=== PATIENT | male | born 1950 | race Caucasian/White ===

== ENCOUNTER 2024-07-24 07:31 | Outpatient (CLI) | payer MEDICARE, OTHER, SELFPAY ==
--- NOTE | ~2024-07-24 | PE_ITS ---
EXAMINATION: PET_PETPSMAST_PT DATE: 07/24/2024 09:46 INDICATION: Gastric cancer TECHNIQUE: 5.773 mCi of Illucix Ga-68([id number]) was administered i.v. Low dose computed tommy graphy (CT) images were acquired from the base of the brain to the base of the brain to the proximal thighs for attenuation correction and anatomic localization. Positron emission tomography (PET) image s were acquired in the same distribution beginning 88 minutes after injection. Images including fused PET/CT images were reconstructed in axial, coronal, and sagittal planes. Automated exposure control technique was employed. The dose-length product was 1242.86mGy-cm. COMPARISON: None FINDINGS: Head/neck: Typical pattern of symmetric physiologic increased activity in the lacrimal, parotid and submandibula r glands as well as along the mucosa of the nasal and oral cavities, pharynx and hypopharynx. No path ologically enlarged cervical lymphadenopathy or suspicious foci of increased uptake in the visualized head or neck. 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 Mil d dependent atelectasis in the bilateral lower lobes. No other suspicious pulmonary nodules, pulmonar y edema, pneumonia or pleural effusion. Heart size is normal. Atherosclerotic coronary artery calcifi cation. No pericardial effusion. Thoracic aorta is normal in caliber. No pathologically enlarged or P MSA avid thoracic lymphadenopathy. Abdomen/pelvis/proximal thighs: Physiologic renal accumulation and excretion of activity in the kidneys, bladder and along portions o f ureters. Bilateral nonobstructing nephrolithiasis with largest stone measuring 6 mm a left total ca lyx of the left kidney also several small stones within the decompressed bladder. Small focus of incr eased PMSA activity at the posterior prostate near the midline which extends cephalad and posteriorly in the base of the right seminal vesicle with maximal SUV of 18.6 consistent with primary prostate c ancer. There is a single 9 x 4 mm PSMA avid left obturator lymph node along the posterolateral margin of the left common iliac vein with maximal SUV of 4.0. Normal degree and slightly heterogenous patte rn of increased uptake throughout the liver and spleen without radiologic correlate or dominant PSMA avid lesion. Small calcified gallstones within the normal-appearing gallbladder. Pancreas and bilater al adrenal glands are normal. Moderate uptake scattered throughout the bowels with typical duodenal a nd proximal jejunal predominance and without radiologic correlate, also likely physiologic. Mild sigm oid diverticulosis without adjacent inflammatory stranding to suggest diverticular colitis. Normal ap pendix. No other abnormal foci of increased uptake or pathologically enlarged lymphadenopathy in the abdomen, pelvis or proximal thighs. Musculoskeletal: Moderate cervical, thoracic and lumbar spondylosis with anterior fusion at C6-C7. Small sclerotic bon e island at the left posterior iliac spine without associated PSMA uptake. No other suspicious lytic, blastic or abnormally PSMA avid bone lesions. IMPRESSION: 1. Increased uptake at the posterior prostate extending to the base of the right seminal vesicle susp icious for primary prostate cancer with likely local invasion of the seminal vesicle. 2. Single small PSMA avid left obturator lymph node suspicious for metastatic disease. No other lesio ns suspicious for metastatic disease in the neck, chest, abdomen or pelvis. 3. 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 4. Cholelithiasis. 5. Bilateral nonobstructing nephrolithiasis as well as several bladder stones. Reviewed, dictated and finalized at location B. ACE SUPERVISOR IMPRESSION: 1. Increased uptake at the posterior prostate extending to the base of the righ t seminal vesicle suspicious for primary prostate cancer with likely local inva ashly of the seminal vesicle. 2. Single small PSMA avid left obturator lymph node suspicious for metastatic d isease. No other lesions suspicious for metastatic disease in the neck, chest, abdomen or pelvis. 3. 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 4. Cholelithiasis. 5. Bilateral nonobstructing nephrolithiasis as well as several bladder stones.
--- OUTSIDE RECORDS SUMMARY | 2024-07-24 07:36 | XMS_ITS | Clinical Summary ---
Author Organization [facility] Address [address] [place] [phone] Phone Care Team Providers Care Cane Packer Name Role Phone Provider, None Primary Care Provider Unavailabl e Allergies No known active allergies Medications Tamsulosin HCl (FLOMAX PO) Take by mouth daily. Active pseudoephedrine- guaiFENesin (MUCINEX D) 60-600 MG TABLET SR 12 HR Take 1 Tab by mouth every 12 hours. 08/12/2017 Active Social History Tobacco Use Types Packs/Day Years Used Date Smoking Tobacco: Never Smokeless Tobacco: Current Snuff Sex and Gender Information Value Date Recorded Sex Assigned at Not on file Legal Sex Male 10:43 AM CDT Gender Identity Not on file Sexual Orientation Not on file Last Filed Vital Signs Vital Sign Reading Time Taken Comments Blood Pressure 132/74 08/12/2017 10:53 AM CDT Pulse 81 08/12/2017 10:53 AM CDT Temperature 37.1 C (98.7 F) 08/12/2017 10:53 AM CDT Respiratory Rate 16 08/12/2017 10:53 AM CDT Oxygen Saturation 97% 08/12/2017 10:53 AM CDT Inhaled Oxygen Concentration - - Weight 94.8 kg (209 lb) 08/12/2017 10:53 AM CDT Height 180.3 cm (5' 11 ) 08/12/2017 10:53 AM CDT Body Mass Index 29.15 08/12/2017 10:53 AM CDT Plan of Treatment Health Maintenance Due Date Last Done Comments Hepatitis C Virus (HCV) Screening 1950 TdaP Immunization 1950 Colonoscopy 11/17/1995 Colorectal Cancer Screening 11/17/1995 Cologuard 2000 Immunochemical Fecal Occult Blood 2000 Pneumococcal Immunization (5 0+ years) (1 of 1 - PCV) 2000 Zoster Immunization (1 of 2) 2000 Influenza Immunization (#1) 2024 SARS-COV-2 Immunization ( - season) 2024 02/20/2021, 08/12/2020, 07/22/2020 Respiratory Syncytial Virus (RSV) Immunization (Adult) (1 - 1-dose 75+ series) 2025 Hepatitis B Immunization Aged Out No longer eligible based on patient's age to complete this topic Meningococcal Immunization (ACWY) Aged Out No longer eligible b ased on patient's age to complete this topic Rotavirus Immunization Aged Out No lo nger eligible based on patient's age to complete this topic Insurance MEDICARE Care Teams Cane Packer Relationship Specialty Start Date End Date Provider, None [place] PCP - General 08/12/17
--- OUTSIDE RECORDS SUMMARY | 2024-07-24 07:36 | XMS_ITS | Clinical Summary ---
Author Organization [address] Address [address] [place] [address] Care Team Providers Care Wave Solder Offbearer Name Role Phone Venkatesh Faust MD Primary Care Provider [phone] Allergies No known active allergies Medications triamcinolone (KENALOG) 0.1 % creamIndication s:Rash Apply topically 3 (three) times a day for 10 days 80 g 4 Active methylPREDNISol one (Medrol, Rajan,) 4 mg DosepackIndicat ions:Rash follow package directions 1 packet 4 Active Active Problems Problem Noted Date Diagnosed Date Need for influenza vaccination 03/09/2024 Assessment & Plan (03/09/2024 9:03 AM CDT): Flu vaccine given in office Medicare annual wellness visit, subsequent 03/09 Assessment & Plan (03/09/2024 9:10 AM CDT): In regard to health maintenance, Influenza vaccine- UTD Pneumococcal vaccine- UTD Shingrix vaccine- will get today at pharmacy ASCVD risk: 21.6% Eat a healthy diet: focus on lean meats and proteins, more fruits, vegetables and whole grains and low in sugars and fats. Limit red meat and avoid processed meat. Maintain a healthy weight; avoid being overweight. Aim for a normal body mass index (BMI) of 18.5-24.9. Help learning to eat healthier, we can set up appointment with relationship specialist/panel beater. Have an active lifestyle, strive for 30 minutes of moderate exercise 5 times a week and strength or resistance training at least twice a week. Use broad-spectrum (UVA+UVB) sunscreen with SPF 30 or greater, is water resistant, limit time spent in the sun (10 am-4pm), wear hat, wear UV protective clothing, wear sunglasses. Never use a tanning bed. Skin that was irradiated may be more sensitive over your lifetime. Limit alcohol intake, 1 drink per day for a woman and 2 drinks per day for a man. Encounters Date Type Department Care Team Description 05/15/2024 9:30 AM SERVICE CREW LEADER Office Visit [facility] [place] [address] [place] [address] Mery Das, ZULEYKA Rash (Primary Dx) 05/09/2024 8:20 AM SERVICE CREW LEADER Lab [facility] [address] [place] [address] from Last 3 Months Immunizations Immunization Administration Dates Next Due Influenza, Quad, Adjuvantate d, Intramuscular 02/24/2022 Influenza, Quadrivalent, Hig h Dose, Preservative Free, Intrr 03/02/2023,02/24/2022,02/18/2021,02/25 Influenza, Trivalent, High D ose, Split, Preservative Free, Intramuscular 03/09/2024,02/26/2020,04/11/2019,05/16 Influenza, Unspecified 04/11/2019,2017,04/29/2018,08/16(Deferred: Patient Refused) [employer] SARS-CoV-2 Monovalent Vaccination (12+ Yrs) PURPLE 02/24/2022 Pfizer Sars-Cov-2 Bivalent V accination (12+ YRS) 05/31/2022,05/31/2022 Pneumococcal Conjugate PCV 13 08/16/2017 Pneumococcal Conjugate, Unspecified 08/21/2018,0 08/21/2018 Pneumococcal Polysaccharide PPV23 10/08/2019 Pneumococcal, Unspecified 08/21/2018,04/29/2018 ZOSTER Recombinant 01/10/2018,08/16/2017 Surgical History Surgery Date Site/Laterality Comments OTHER SURGICAL HISTORY left hand, 2 surgeries, 2007, 2014 PROSTATE SURGERY Medical History Medical History Date Comments Enlarged prostate takes flowmax and sees specialist Family History Medical History Relation Name Comments No Known Problems Daughter 1 Tootie No Known Problems Daughter 2 Eula No Known Problems Daughter 3 Tracey Cancer Father Harshil bone, secondary lung cancer Relation Name Status Comments Daughter 1 Tootie Alive Daughter 2 Eula Alive Daughter 3 Tracey Alive Father Harshil (Age 82) Mother Dianna Alive Social History Tobacco Use Types Packs/Day Years Used Date Smoking Tobacco: Never Cigarettes Smokeless Tobacco: Current Snuff, Chew Tobacco Cessation:Ready to Q uit: Not Asked; Counseling Given: Not Answered Alcohol Use Standard Drinks/Week Comments Yes 0 (1 standard drink = 0.6 oz pur e alcohol) socially PHQ-2 Answer Date Recorded PHQ-2 Total Score (If total score is 3 or more points, staff should administer the PHQ-9) 0 03/09/2024 Sex and Gender Information Value Date Recorded Sex Assigned at Not on file Legal Sex Male 7:27 PM SERVICE CREW LEADER Gender Identity Male 10/05/2018 6:44 PM CDT Sexual Orientation Straight 10/05/2018 6: 44 PM CDT Obstetrics History Last Filed Vital Signs Vital Sign Reading Time Taken Comments Blood Pressure 118/74 05/15/2024 9:28 AM SERVICE CREW LEADER Pulse 63 05/15/2024 9:28 AM SERVICE CREW LEADER Temperature 36.2 C (97.2 F) 05/15/2024 9:28 AM SERVICE CREW LEADER Respiratory Rate 18 05/15/2024 9:28 AM SERVICE CREW LEADER Oxygen Saturation 98% 05/15/2024 9:28 AM SERVICE CREW LEADER Inhaled Oxygen Concentration - - Weight 96.2 kg (212 lb) 05/15/2024 9:28 AM SERVICE CREW LEADER Height 180.3 cm (5' 11 ) 05/15/2024 9:28 AM SERVICE CREW LEADER Body Mass Index 29.57 05/15/2024 9:28 AM SERVICE CREW LEADER Plan of Treatment Health Maintenance Due Date Last Done Comments Hepatitis C Screening 1950 DTaP/Tdap/Td Vaccine (1 - Tdap) 1961 Hepatitis B Screening 1968 Covid-19 Vaccine (2023-2 5 season) 2024 05/31/2022, 05/31/2022, 02/24/2022, Additional history exists Depression Screening 03/09/2025 03/09/2024, 03/02/2023, 02/24/2022, Additional history exists Fall Risk Assessment 03/09/2025 03/09/2024, 03/02/2023, 02/24/2022, Additional history exists Well Visit 65+ 03/09/2025 03/09/2024, 1008/2022, 02/24/2022, Additional history exists Zoster Vaccine Completed 01/10/2018, 08/16/2017 Pneumococcal vaccine 65+ Completed 020, 08/21/2018, 08/21/2018, Additional history exists Influenza Vaccine Completed 03/09/2024, , 02/24/2022, Additional history exists Prostate Cancer Screening-PSA Discontinued , 03/02/2023, 10/04/2018 Colon Cancer Screening-Colonoscopy Discontinued Procedures Procedure Name Priority Date/Time Associated Diagnosis Comments PSA SCREEN Routine 05/09/2024 8:27 AM SERVICE CREW LEADER from Last 3 Months Results * (ABNORMAL) PSA screen (05/09/2024 8:27 AM SERVICE CREW LEADER) PSA-Total 7.48(H) <=6.20 ng/mL Comment: Interpretive Data AGE SEX REFERENCE INTERVAL 0 minutes-150 years Female None 0 minutes-49 years Male None 50-59 years Male 0-3.90 60-69 years Male 0-5.40 70-79 years Male 0-6.20 80-150 years Male 0-6.20 The Rona PSA Total assay procedure was used. Results from different manufacturers or methods may not be comparable. Serial testing should be performed using the same method. Current interpretive data last revised 21. Testing performed by: [facility], [id number] [place] [address], [place] [address] Blood 05/09/2024 8:27 AM SERVICE CREW LEADER 05/09/2024 8:27 AM SERVICE CREW LEADER us Oniel Yadav MD LAB BLOOD ORDERABLES Final Result [facility] [address] [facility] [place] [address] from Last 3 Months Insurance MEDICARE [facility] MEDICARE [facility] MEDICARE [employer] Care Teams Wave Solder Offbearer Relationship Specialty Start Date End Date [place] [address] PCP - General Family Medicine 10/08/19
--- OUTSIDE RECORDS SUMMARY | 2024-07-24 07:36 | XMS_ITS | Referral Summary ---
Author Organization [facility] [address] [facility] lto Address [address] [place] [address] Care Team Providers Care Lift Truck Operator Name Role Phone Venkatesh Faust MD Primary Care Provider [phone] Encounters Date Type Department Care Team Description 05/15/2024 9:30 AM ASSEMBLER GOLD FRAME Office Visit [facility] [place] [address] [place] [address] Mery Das NP Rash (Primary Dx) 05/09/2024 8:20 AM ASSEMBLER GOLD FRAME Lab [facility] [address] [place] [address] from Last 3 Months Allergies No known active allergies Medications triamcinolone [...] healthier, we can set up appointment with computer specialist/test department helper. Have an active lifestyle, strive for 30 [...] 2 drinks per day for a man. Immunizations Immunization Administration Dates Next Due Influenza, Quad, Adjuvantate d, Intramuscular 02/24/2022 Influenza, Quadrivalent, Hig h Dose, Preservative Free, Intrr 03/02/2023,02/24/2022,02/18/2021,02/25 Influenza, Trivalent, High D ose, Split, Preservative Free, Intramuscular 03/09/2024,02/26/2020,04/11/2019,05/16 Influenza, Unspecified 04/11/2019,2017,04/29/2018,08/16(Deferred: Patient Refused) [employer] SARS-CoV-2 Monovalent Vaccination (12+ Yrs) PURPLE 02/24/2022 [employer] Sars-Cov-2 Bivalent V accination (12+ YRS) 05/31/2022,05/31/2022 Pneumococcal Conjugate PCV 13 08/16/2017 Pneumococcal Conjugate, Unspecified 08/21/2018,0 08/21/2018 Pneumococcal Polysaccharide PPV23 10/08/2019 Pneumococcal, Unspecified 08/21/2018,04/29/2018 ZOSTER Recombinant 01/10/2018,08/16/2017 Social History Tobacco Use Types Packs/Day Years [...] on file Legal Sex Male 7:27 PM ASSEMBLER GOLD FRAME Gender Identity Male 10/05/2018 6:44 PM CDT Sexual Orientation Straight 10/05/2018 6: 44 PM CDT Last Filed Vital Signs Vital Sign Reading Time Taken Comments Blood Pressure 118/74 05/15/2024 9:28 AM ASSEMBLER GOLD FRAME Pulse 63 05/15/2024 9:28 AM ASSEMBLER GOLD FRAME Temperature 36.2 C (97.2 F) 05/15/2024 9:28 AM ASSEMBLER GOLD FRAME Respiratory Rate 18 05/15/2024 9:28 AM ASSEMBLER GOLD FRAME Oxygen Saturation 98% 05/15/2024 9:28 AM ASSEMBLER GOLD FRAME Inhaled Oxygen Concentration - - Weight 96.2 kg (212 lb) 05/15/2024 9:28 AM ASSEMBLER GOLD FRAME Height 180.3 cm (5' 11 ) 05/15/2024 9:28 AM ASSEMBLER GOLD FRAME Body Mass Index 29.57 05/15/2024 9:28 AM ASSEMBLER GOLD FRAME Plan of Treatment Not on file Procedures Procedure Name Priority Date/Time Associated Diagnosis Comments PSA SCREEN Routine 05/09/2024 8:27 AM ASSEMBLER GOLD FRAME from Last 3 Months Results * (ABNORMAL) PSA screen (05/09/2024 8:27 AM ASSEMBLER GOLD FRAME) PSA-Total 7.48(H) <=6.20 ng/mL Comment: Interpretive Data [...] data last revised 21. Testing performed by: [facility] [id number], [place]., [address] Blood 05/09/2024 8:27 AM ASSEMBLER GOLD FRAME 05/09/2024 8:27 AM ASSEMBLER GOLD FRAME Oniel Yadav MD LAB BLOOD ORDERABLES Final Result [facility] [address] [facility] [place] [address] from Last 3 Months Insurance MEDICARE [facility] MEDICARE [employer] MEDICARE [employer] Care Teams Lift Truck Operator Relationship Specialty Start Date End Date Venkatesh aFust MD [address] [place] [address] PCP - General Family Medicine 10/08/19
== END 2024-07-24 07:32 | disposition home or self-care (01) ==
PROVIDERS: Visit Provider Radiology Radiation Oncology
DX: C61 Malignant neoplasm of prostate (principal); K80.20 Calculus of gallbladder without cholecystitis without obstruction; N20.0 Calculus of kidney
CPT/HCPCS: 78815; A9596